=== PATIENT | female | born 1970 | race Caucasian/White ===

== ENCOUNTER 2017-05-02 11:02 | Emergency (ER) | payer OTHER ==
[~2017-05-02] VITALS: Ht 172.7 cm; Wt 78.2 kg
[2017-05-02 13:25] VITALS: BP 113/57
== END 2017-05-02 13:25 | disposition home or self-care (01) ==
LOC: ED 11:02
DX: J18.9 Pneumonia, unspecified organism (principal)
CPT/HCPCS: J0696; J7613; J7644